=== PATIENT | female | born 1935 | race Caucasian/White ===

== ENCOUNTER 2024-09-22 16:47 | Inpatient (IN) | payer MEDICARE, BC, SELFPAY ==
[2024-09-22] VITALS (15 sets, daily range): BP systolic 132–187; BP diastolic 65–92; BMI 17.7
--- NOTE | 2024-09-22 07:31 | ED.GENMED ---
History of Present Illness
<Sarika Ablarran MD, Resident - Last Filed: 09/24/24 15:16>
General
Chief Complaint: Abdominal Pain
Source: patient and family
Time Seen by Provider: 09/22/24 07:30
History of Present Illness
History of Present Illness:
This is a 88 year old female patient with PMH of GERD, HLD, NIDDM, PAD, Hx of breast cancer and bladder cancer who presented to the ED with concerns for acid reflux, decreased apetite and diarrhea. She states that on Wednesday she started to have
symptoms of non bloody diarrhea that last until today when she have soft formed stools. She had epigastric abdominal pain that last for 2 days and then resolved. She then started to experience severe acid reflux along with retrosternal burning and
non bloody vomiting. She has been omprazole which provided no relief. She was unable to properly tolerate food for the past 12 hours because of her acid reflux. She denies any fevers, chills, constipation, palpitations or back pain. She has no
recent history of travel.
Past History
<Sarika Albarran MD, Resident - Last Filed: 09/24/24 15:16>
Past History
ED Past Medical History: COPD, GERD, Hypercholesterolemia, NIDDM and Other (PAD)
ED Past Surgical History: Appendectomy, Cholecystectomy and Other (Hx of mastectomy due to breast cancer, stents in lower extremities PAD)
Social History
Tobacco: Smoker (smokes a pack a day)
Alcohol: None
Living: alone
Employment: Not employed
Review of Systems
<Sarika Albarran MD, Resident - Last Filed: 09/24/24 15:16>
Review of Systems
Constitutional: Denies fever or chills
EENT: Reports sore throat
Respiratory: Reports trouble breathing
Cardiac: Denies chest pain or palpitations
ABD/GI: Reports nausea and vomiting; Denies abdominal pain or diarrhea
: Reports dysuria
Musculoskeletal: Denies back pain
Neurological: Denies headache
Phy Exam
<Sarika Albarran MD, Resident - Last Filed: 09/24/24 15:16>
General Physical Exam
General Presentation: well appearing and no apparent distress
Cardiovascular Exam
Cardiovascular Exam: regular rate/rhythm and no murmur
Heart Sounds: normal
Pulmonary Exam
Pulmonary Exam: lungs clear, no respiratory distress and no crackles
Gastrointestinal Exam
Gastrointestinal Exam: normal bowel sounds, non tender, soft and non distended
Neurological Exam
Neurological Exam: oriented x3
Musculoskeletal Exam
Musculoskeletal Exam: no edema
Skin Exam
Skin Exam: warm/dry
Psychiatric Exam
Psychiatric Exam: normal mood/affect
Course
<Sarika Albarran MD, Resident - Last Filed: 09/24/24 15:16>
Orders/Labs/Results
Orders:
Orders
09/22/24 07:37
EKG [Electrocardiogram (*1)] Urgent
Reason for Study: Abdominal Pain
EKG- Treatment ONCE
09/22/24 08:45
Mag Hydrox/Al Hydrox/Simeth [Maalox] 30 ml Phenobarb/Hyoscy/Atropine/Scop [] 10 ml Viscous Lidocaine 2% [Xylocaine Viscous Cup] 10 ml PO NOW
Ondansetron Injectable [Zofran] 4 mg IV NOW STA
Pantoprazole [Protonix IV] 40 mg IV NOW STA
CR Obstruct Series W/pa Chest Urgent
Comment:
Reason For Exam: acid reflux, nausea, difficulty swallowing
09/22/24 08:49
0.9% Sodium Chloride 500 ml [Nss] 500 ml IV BOLUS
09/22/24 09:09
Complete Blood Count/With Diff Urgent
09/22/24 09:11
Mag Hydrox/Al Hydrox/Simeth [Maalox] 30 ml .ROUTE .STK-MED ONE
Phenobarb/Hyoscy/Atropine/Scop [] 10 ml .ROUTE .STK-MED ONE
Viscous Lidocaine 2% [Xylocaine Viscous Cup] 15 ml .ROUTE .STK-MED ONE
09/22/24 09:18
Add On- LAB Urgent
Tests Added?: lipase and magnesium
09/22/24 10:28
Prochlorperazine [Compazine] 10 mg IV NOW STA
09/22/24 10:29
CT Abd/pel W Iv And Oral Contr Urgent
Comment:
Reason For Exam: abdominal pain, vomiting
Iohexol [Omnipaque] See Protocol PO NOW STA
09/22/24 12:50
Comprehensive Metabolic Panel Urgent
Lipase Urgent
Magnesium Urgent
09/22/24 15:49
Consult Surgery [SURGICAL CONSULT] Routine
Consulting Provider: Jad Teague
Was physician already notified: Yes
Reason for consult: SBO
09/22/24 16:00
0.9% Sodium Chloride 1000 ml [Nss] 1,000 ml IV 100 mls/hr
09/22/24 16:09
Admit/Transfer Patient As Directed
Co-Sign Provider:
Level of Care: Inpatient admission
Assign to:: Telemetry
Physician / Group: Donovan Hart
Diagnosis: Small Bowel Obstruction
Reason for Telemetry: Arrhythmia
Date to Stop Telemetry: 09/25/24
Time to Stop Telemetry: 11:00
Reason for Hospitalization: Small Bowel Obstruction
Expected length of stay greater than two midnights?: Yes
ELOS- Estimated Length of Stay in days: 2
I certify the patient meets the requirements for IP care: Yes
Ertapenem [Invanz] 1,000 mg 0.9% Sodium Chloride [Nss] 50 ml IV ONCE
PRN Pain Medication Management As Directed
May give lesser potent ordered pain med per pt: Yes
preference::
Protocol:: Medication orders for pain may be administered in a
manner that supports deferring to patient preference
when the pt is:
- Requesting an ordered lesser potent pain medication.
Least to most potent pain medications are defined
as: acetaminophen < NSAID < tramadol < opioids
(morphine, oxycodone, hydromorphone).
- Requesting a lesser dose of the same medication IF
ORDERED.
- Requesting a less intrusive route of administration
if both routes are prescribed by the provider (PO <
IV).
09/22/24 16:13
HYDROmorphone [Dilaudid] 0.25 mg IV PACU-Q5MPRN PRN
HYDROmorphone [Dilaudid] 0.25 mg IV PACU-Q5MPRN PRN
Meperidine [Demerol] 12.5 mg IV PACU-Q5MPRN PRN
Ondansetron Injectable [Zofran] 4 mg IV PACU-ONCEPRN PRN
Prochlorperazine [Compazine] 5 mg IV PACU-ONCEPRN PRN
Notify MD As Directed
Notify physician if: for SDS patients with known or suspected sleep obstructive sleep apnea, monitor in the
PACU.
Notify MD for any apneic/desaturation episodes
O2 Therapy [RESP] Urgent
Titrate/Wean O2 to maintain O2 sat greater than (%): 92
Special Instructions: -Provide supplemental oxygen to achieve O2 sat of 92% or greater.
-After 15 min, may wean O2 and discontinue if patient is able to maintain O2 sat of 92%
or greater during recovery period.
If patient is a discharge home, without oxygen therapy, notify anestheiologist if
unable to maintain O2 SAT of 92% or greater on room air for MD clearance.
09/22/24 16:14
Code Status As Directed
Resuscitation Status: Full Code
09/22/24 16:15
Normosol (Mult Electrolytes) [Normosol-R/Plasmalyte-A] 1,000 ml IV PER PROTOCOL
09/22/24 16:24
Dextrose 50%-Water [Dextrose 50% Syringe] 12.5 grams IV [id number] PRN
09/22/24 16:27
Dexamethasone Sod Phosphate [Decadron] 20 mg .ROUTE .STK-MED ONE
Fentanyl Citrate/Pf [Sublimaze] 100 mcg .ROUTE .STK-MED ONE
Lidocaine 2% Mpf [Xylocaine Mpf 2%] 100 mg .ROUTE .STK-MED ONE
Ondansetron Injectable [Zofran] 4 mg .ROUTE .STK-MED ONE
Propofol [Diprivan] 20 ml .ROUTE .STK-MED
Rocuronium [place] [Rocuronium] 50 mg .ROUTE .STK-MED ONE
09/22/24 16:29
Bupivacaine 0.25%Pf/Epinephrin [Sensorcaine-Epi 0.25%-0.0005] 60 ml .ROUTE .STK-MED ONE
09/22/24 18:00
Insulin Aspart Corrective Low [Novolog Flexpen-Low Resistance] See Protocol SC Q6
09/22/24 18:35
Lorazepam [Ativan] 0.25 mg IV DAILYPRN PRN
Morphine Sulfate 2 mg IV Q4HPRN PRN
Prochlorperazine [Compazine] 5 mg IV Q6HPRN PRN
09/22/24 18:35
Activity As Directed
Activity Level: With Assistance
Pneumatic Compression Sleeves As Directed
Type: Knee high
Precautions As Directed
Type of Precautions: Other
Comment: Fall precautions
Vital Signs As Directed
Frequency: Per unit guidelines
DX Deep Vein Thrombosis Video Routine
09/23/24 05:37
Basic Metabolic Panel IN AM
Complete Blood Count/No Diff IN AM
Magnesium IN AM
09/23/24 08:00
Aspirin Low Dose EC [Aspir Low (Enteric Coated)] 81 mg PO DAILY
Pantoprazole [Protonix IV] 40 mg IV DAILY
09/24/24 04:44
Basic Metabolic Panel IN AM
Complete Blood Count/No Diff IN AM
Magnesium IN AM
09/25/24 06:00
Basic Metabolic Panel IN AM
Complete Blood Count/No Diff IN AM
Magnesium IN AM
09/25/24 11:00
DC Protocol for Telemetry ONCE
09/26/24 06:00
Basic Metabolic Panel IN AM
Complete Blood Count/No Diff IN AM
Magnesium IN AM
09/27/24 06:00
Basic Metabolic Panel IN AM
Complete Blood Count/No Diff IN AM
Magnesium IN AM
09/28/24 06:00
Basic Metabolic Panel IN AM
Complete Blood Count/No Diff IN AM
Magnesium IN AM
09/29/24 06:00
Basic Metabolic Panel IN AM
Complete Blood Count/No Diff IN AM
Magnesium IN AM
Abnormal Lab Results
09/22/24 09/22/24
09:09 12:50
WBC 12.7 H 10^3/uL
(4.8-10.8)
RBC 5.46 H 10^6/uL
(4.20-5.40)
MCV 80.6 L fL
(81.0-99.0)
Abs Immat Gran (auto) 0.1 H 10^3/uL
(0-0.05)
Absolute Neuts (auto) 10.9 H 10^3/uL
(1.4-6.5)
Absolute Lymphs (auto) 0.8 L 10^3/uL
(1.2-3.4)
Absolute Monos (auto) 0.9 H 10^3/uL
(0.1-0.6)
Neutrophils % 85.8 H %
(42.2-75.2)
Lymphocytes % 6.4 L %
(20.5-51.1)
Sodium 125 L mmol/L
(135-145)
Chloride 89 L mmol/L
(98-107)
BUN 35 H mg/dl
(7-17)
Glucose 122 H mg/dl
(70-99)
Lipase 17 L U/L
(23-300)
09/22/24 09:09
09/22/24 12:50
Vital Signs
Initial and Last Documented VS:
Initial Vital Signs
Temp Pulse Resp BP Pulse Ox
97.4 F 97 16 152/85 96
09/22/24 07:27 09/22/24 07:27 09/22/24 07:27 09/22/24 07:27 09/22/24 07:27
Last Documented Vital Signs
Temp Pulse Resp BP Pulse Ox
98.2 F 82 16 166/83 96
09/24/24 11:29 09/24/24 11:29 09/24/24 11:29 09/24/24 11:29 09/24/24 11:29
<Jaylon Chery MD - Last Filed: 09/23/24 06:38>
Orders/Labs/Results
Orders:
Orders
09/22/24 07:37
EKG [Electrocardiogram (*1)] Urgent
Reason for Study: Abdominal Pain
EKG- Treatment ONCE
09/22/24 08:45
Mag Hydrox/Al Hydrox/Simeth [Maalox] 30 ml Phenobarb/Hyoscy/Atropine/Scop [] 10 ml Viscous Lidocaine 2% [Xylocaine Viscous Cup] 10 ml PO NOW
Ondansetron Injectable [Zofran] 4 mg IV NOW STA
Pantoprazole [Protonix IV] 40 mg IV NOW STA
CR Obstruct Series W/pa Chest Urgent
Comment:
Reason For Exam: acid reflux, nausea, difficulty swallowing
09/22/24 08:49
0.9% Sodium Chloride 500 ml [Nss] 500 ml IV BOLUS
09/22/24 09:09
Complete Blood Count/With Diff Urgent
09/22/24 09:11
Mag Hydrox/Al Hydrox/Simeth [Maalox] 30 ml .ROUTE .STK-MED ONE
Phenobarb/Hyoscy/Atropine/Scop [] 10 ml .ROUTE .STK-MED ONE
Viscous Lidocaine 2% [Xylocaine Viscous Cup] 15 ml .ROUTE .STK-MED ONE
09/22/24 09:18
Add On- LAB Urgent
Tests Added?: lipase and magnesium
09/22/24 10:28
Prochlorperazine [Compazine] 10 mg IV NOW STA
09/22/24 10:29
CT Abd/pel W Iv And Oral Contr Urgent
Comment:
Reason For Exam: abdominal pain, vomiting
Iohexol [Omnipaque] See Protocol PO NOW STA
09/22/24 12:50
Comprehensive Metabolic Panel Urgent
Lipase Urgent
Magnesium Urgent
09/22/24 15:49
Consult Surgery [SURGICAL CONSULT] Routine
Consulting Provider: Jad Teague
Was physician already notified: Yes
Reason for consult: SBO
09/22/24 16:00
0.9% Sodium Chloride 1000 ml [Nss] 1,000 ml IV 100 mls/hr
09/22/24 16:09
Admit/Transfer Patient As Directed
Co-Sign Provider:
Level of Care: Inpatient admission
Assign to:: Telemetry
Physician / Group: Donovan Hart
Diagnosis: Small Bowel Obstruction
Reason for Telemetry: Arrhythmia
Date to Stop Telemetry: 09/25/24
Time to Stop Telemetry: 11:00
Reason for Hospitalization: Small Bowel Obstruction
Expected length of stay greater than two midnights?: Yes
ELOS- Estimated Length of Stay in days: 2
I certify the patient meets the requirements for IP care: Yes
Ertapenem [Invanz] 1,000 mg 0.9% Sodium Chloride [Nss] 50 ml IV ONCE
PRN Pain Medication Management As Directed
May give lesser potent ordered pain med per pt: Yes
preference::
Protocol:: Medication orders for pain may be administered in a
manner that supports deferring to patient preference
when the pt is:
- Requesting an ordered lesser potent pain medication.
Least to most potent pain medications are defined
as: acetaminophen < NSAID < tramadol < opioids
(morphine, oxycodone, hydromorphone).
- Requesting a lesser dose of the same medication IF
ORDERED.
- Requesting a less intrusive route of administration
if both routes are prescribed by the provider (PO <
IV).
09/22/24 16:13
HYDROmorphone [Dilaudid] 0.25 mg IV PACU-Q5MPRN PRN
HYDROmorphone [Dilaudid] 0.25 mg IV PACU-Q5MPRN PRN
Meperidine [Demerol] 12.5 mg IV PACU-Q5MPRN PRN
Ondansetron Injectable [Zofran] 4 mg IV PACU-ONCEPRN PRN
Prochlorperazine [Compazine] 5 mg IV PACU-ONCEPRN PRN
Notify MD As Directed
Notify physician if: for SDS patients with known or suspected sleep obstructive sleep apnea, monitor in the
PACU.
Notify MD for any apneic/desaturation episodes
O2 Therapy [RESP] Urgent
Titrate/Wean O2 to maintain O2 sat greater than (%): 92
Special Instructions: -Provide supplemental oxygen to achieve O2 sat of 92% or greater.
-After 15 min, may wean O2 and discontinue if patient is able to maintain O2 sat of 92%
or greater during recovery period.
If patient is a discharge home, without oxygen therapy, notify anestheiologist if
unable to maintain O2 SAT of 92% or greater on room air for MD clearance.
09/22/24 16:14
Code Status As Directed
Resuscitation Status: Full Code
09/22/24 16:15
Normosol (Mult Electrolytes) [Normosol-R/Plasmalyte-A] 1,000 ml IV PER PROTOCOL
09/22/24 16:24
Dextrose 50%-Water [Dextrose 50% Syringe] 12.5 grams IV [id number] PRN
09/22/24 16:27
Dexamethasone Sod Phosphate [Decadron] 20 mg .ROUTE .STK-MED ONE
Fentanyl Citrate/Pf [Sublimaze] 100 mcg .ROUTE .STK-MED ONE
Lidocaine 2% Mpf [Xylocaine Mpf 2%] 100 mg .ROUTE .STK-MED ONE
Ondansetron Injectable [Zofran] 4 mg .ROUTE .STK-MED ONE
Propofol [Diprivan] 20 ml .ROUTE .STK-MED
Rocuronium [place] [Rocuronium] 50 mg .ROUTE .STK-MED ONE
09/22/24 16:29
Bupivacaine 0.25%Pf/Epinephrin [Sensorcaine-Epi 0.25%-0.0005] 60 ml .ROUTE .STK-MED ONE
09/22/24 18:00
Insulin Aspart Corrective Low [Novolog Flexpen-Low Resistance] See Protocol SC Q6
09/22/24 18:35
Lorazepam [Ativan] 0.25 mg IV DAILYPRN PRN
Morphine Sulfate 2 mg IV Q4HPRN PRN
Prochlorperazine [Compazine] 5 mg IV Q6HPRN PRN
09/22/24 18:35
Activity As Directed
Activity Level: With Assistance
Pneumatic Compression Sleeves As Directed
Type: Knee high
Precautions As Directed
Type of Precautions: Other
Comment: Fall precautions
Vital Signs As Directed
Frequency: Per unit guidelines
DX Deep Vein Thrombosis Video Routine
09/23/24 05:37
Basic Metabolic Panel IN AM
Complete Blood Count/No Diff IN AM
Magnesium IN AM
09/23/24 08:00
Aspirin Low Dose EC [Aspir Low (Enteric Coated)] 81 mg PO DAILY
Pantoprazole [Protonix IV] 40 mg IV DAILY
09/24/24 04:44
Basic Metabolic Panel IN AM
Complete Blood Count/No Diff IN AM
Magnesium IN AM
09/25/24 06:00
Basic Metabolic Panel IN AM
Complete Blood Count/No Diff IN AM
Magnesium IN AM
09/25/24 11:00
DC Protocol for Telemetry ONCE
09/26/24 06:00
Basic Metabolic Panel IN AM
Complete Blood Count/No Diff IN AM
Magnesium IN AM
09/27/24 06:00
Basic Metabolic Panel IN AM
Complete Blood Count/No Diff IN AM
Magnesium IN AM
09/28/24 06:00
Basic Metabolic Panel IN AM
Complete Blood Count/No Diff IN AM
Magnesium IN AM
09/29/24 06:00
Basic Metabolic Panel IN AM
Complete Blood Count/No Diff IN AM
Magnesium IN AM
Abnormal Lab Results
09/22/24 09/22/24
09:09 12:50
WBC 12.7 H 10^3/uL
(4.8-10.8)
RBC 5.46 H 10^6/uL
(4.20-5.40)
MCV 80.6 L fL
(81.0-99.0)
Abs Immat Gran (auto) 0.1 H 10^3/uL
(0-0.05)
Absolute Neuts (auto) 10.9 H 10^3/uL
(1.4-6.5)
Absolute Lymphs (auto) 0.8 L 10^3/uL
(1.2-3.4)
Absolute Monos (auto) 0.9 H 10^3/uL
(0.1-0.6)
Neutrophils % 85.8 H %
(42.2-75.2)
Lymphocytes % 6.4 L %
(20.5-51.1)
Sodium 125 L mmol/L
(135-145)
Chloride 89 L mmol/L
(98-107)
BUN 35 H mg/dl
(7-17)
Glucose 122 H mg/dl
(70-99)
Lipase 17 L U/L
(23-300)
09/22/24 09:09
09/22/24 12:50
Vital Signs
Initial and Last Documented VS:
Initial Vital Signs
Temp Pulse Resp BP Pulse Ox
97.4 F 97 16 152/85 96
09/22/24 07:27 09/22/24 07:27 09/22/24 07:27 09/22/24 07:27 09/22/24 07:27
Last Documented Vital Signs
Temp Pulse Resp BP Pulse Ox
98.2 F 82 16 166/83 96
09/24/24 11:29 09/24/24 11:29 09/24/24 11:29 09/24/24 11:29 09/24/24 11:29
<Sarika Merary Albarran MD, Resident - Last Filed: 09/24/24 15:16>
MDM/Problems Addressed
Differential Diagnosis Includes:
GERD, PUD, Viral Gastroenteritis, Hiatal Hernia
MDM/Problems Addressed:
Pt afebrile on exam. CBC/CMP/Abd obstruction series with CXR ordered. Elevated WBC. Chest/Abd xray without any acute cardiopulmonary process. Started on IVFs, PPI and zofran. Patient only experienced mild relief. CT abd with IV and oral contrast
showed distal small bowel obstruction with probable transition point in the central posterior pelvis related to adhesions. Order for NGT placement. Will admit patient and consult general surgery.
<Sarika Albarran MD, Resident - Last Filed: 09/24/24 15:16>
*Critical Care Note
Total Time (30-74mins, 75-104mins- exclusive of procedures): Not Applicable
ED Attending Note
<Sarika Albarran MD, Resident - Last Filed: 09/24/24 15:16>
-
Portions of this chart may have been created with voice recognition software.� Occasional wrong word or��sound alike� substitutions may have occurred due to the inherent limitations of voice recognition software.
<Jaylon Chery MD - Last Filed: 09/23/24 06:38>
ED Attending Note
Patient seen and examined by attending physician: Yes
ED Attending Note:
Patient presents to ED secondary to upper abdominal pain, along with 'reflux' sensation over the past 2 days, with decreased appetite. Patient has had multiple intermittent vomiting episodes. Of note, 5 days ago, patient reports nonbloody diarrhea
that lasted approximately 3 days with resolution. Denies fever or chills. Denies chest pain. Denies back pain. Denies recent travel. Denies recent change in medications or diet. 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 Abdominal
pain described as achy, nonradiating, without any alleviating or exacerbating factors.
Physical Exam
General: mild distress, not acutely ill. afebrile
Head: nc/at. eomi
Neck: supple. no meningeal signs.
Heart: s1/s2 regular rate and rhythm, no murmur. equal radial pulses.
Lungs: no acute respiratory distress. clear bilaterally
Abdomen: normal bowel sounds. mild epigastric/periumbilical tenderness to palpation.
Neuro: alert and oriented x 3. no focal neurological deficits
Skin: no rash
Psychiatric: well kept. interactive and cooperative
Extremities: no edema. no calf tenderness
X-ray report reviewed, concerning for ileus vs developing SBO. CT abd/pel ordered. Pt will require further evaluation and treatment, in light of hyponatremia and ongoing symptoms, persistent nausea
Surgery to be consulted, if CT indicates SBO
Discharge Plan
Departure
Patient Disposition: Admit
Date of Disposition: 09/22/24
Time of Disposition: 15:13
Presentation/result/management discussed w/ accepting MD/DO: Hospitalist
Discharge Problem:
Small bowel obstruction
Interventions
Interventions:
*Risk Screen - Suicide Last Done: 09/22/24 07:27
*General Assessment Last Done: 09/22/24 07:27
*Neglect/Abuse Screening Last Done: 09/22/24 07:27
ED- Fall Risk Assessment Last Done: 09/22/24 07:42
*ED COVID-19 Vaccine History Last Done: 09/22/24 07:27
*Nursing Disposition Last Done: 09/22/24 16:30
ST-Sandyf-Gddgrreqna Assessment Last Done: 09/22/24 07:42
Discharge Date and Time
Discharge Date/Time: 09/22/24 16:30
[2024-09-22] MEDS: NSS 500 IV (09:08)
[2024-09-22] MEDS: ZOFRAN 4 MG IV (09:12)
[2024-09-22] MEDS: PROTONIX IV 40 MG IV (09:12)
[2024-09-22] MEDS: MAALOX 50 PO (09:13)
[2024-09-22 09:15] LABS: % Basophils 0.2 % (0-2); % Immature Granulocytes 0.4 % (0-0.5); % Lymphocytes 6.4 % (20.5-51.1); % Monocytes 7.2 % (1.7-9.3); % Neutrophils 85.8 % (42.2-75.2); Absolute Immature Granulocytes 0.1 10^3/uL (0-0.05); Absolute Lymphocytes 0.8 10^3/uL (1.2-3.4); Absolute Monocytes 0.9 10^3/uL (0.1-0.6); Absolute Neutrophils 10.9 10^3/uL (1.4-6.5); Hemoglobin 15.4 g/dL (12.0-16.0); Mean Corpuscular Hgb 28.2 pg (27.0-31.0); Mean Corpuscular Volume 80.6 fL (81.0-99.0); Mean Platelet Volume 8.7 fL (7.4-10.4); Nucleated Red Blood Cells % 0 %; Platelet Count 270 10^3/uL (130-400); Red Blood Cell Count 5.46 10^6/uL (4.20-5.40); Red Cell Dist. Width 14.2 % (11.5-14.5); White Blood Cell Count 12.7 10^3/uL (4.8-10.8)
[2024-09-22] MEDS: COMPAZINE 10 MG IV (11:01)
[2024-09-22] MEDS: OMNIPAQUE 50 ML PO (11:07)
[2024-09-22 13:13] LABS: ALT (SGPT) 16 U/L (0-35); AST (SGOT) 27 U/L (14-36); Alkaline Phosphatase 106 U/L (38-126); Blood Urea Nitrogen 35 mg/dl (7-17); Calcium 8.8 mg/dl (8.4-10.2); Carbon Dioxide 28 mmol/L (22-30); Chloride 89 mmol/L (98-107); Estimated Creatinine Clearance 35 ml/min; Glucose 122 mg/dl (70-99); Lipase 17 U/L (23-300); Magnesium 1.6 mg/dl (1.6-2.3); Potassium 4.4 mmol/L (3.5-5.1); Sodium 125 mmol/L (135-145); Total Bilirubin 0.6 mg/dl (0.2-1.3); Total Protein 6.7 g/dl (6.3-8.2); eGFR > 60.00
--- NOTE | 2024-09-22 15:57 | HPS.HSE ---
Family Physician
-
Family Physician: Osmin Tineo
Chief Complaint
-
nausea/vomiting/reflux
History of Present Illness
88F GERD, HLD, NIDDM, PAD lower ext stents on ASA, Hx of breast bladder cancer p/w acid reflux/nausea/vomiting starting in morning, prompting ED eval. Prior to onset of symptoms patient had epigastric pain diarrhea for the past few days. Diarrhea
since resolved. Had a small bowel movement in the morning prior to onset nausea vomiting. ED eval would note SBO on imaging likely d/t adhesions. Labs noted hyponatremia likely due to vomiting and mild leukocytosis likely stress reactive. Vital
signs otherwise stable. Symptoms improved with antiemetics and ppi. Surgery evaluated and took patient to OR for laparoscopic surgical evaluation.
Medical History
Past Medical History
Past Medical History: Reports Other (as above)
Past Surgical History: Reports Appendectomy and Cholecystectomy
Social History
Tobacco: Smoker
Alcohol: None
Drug: None
Living: With Family
Family History
Family History: Not pertinent (reviewed)
Allergies / Home Medications
Allergies reflects when Allergies were last updated in [facility].
Home Medications with original date entered in [facility]
Allergy/Medication List:
Allergies
Allergy/AdvReac Type Severity Reaction Status Date / Time
codeine Allergy Unknown Verified 09/22/24 07:34
Home Medications
acetaminophen 500 mg tablet 500 mg PO PRN PRN pain 09/22/24
alprazolam 0.25 mg tablet 0.25 mg PO DAILYPRN PRN anxiety 09/22/24
aspirin 81 mg tablet,delayed release 81 mg PO DAILY Blood Clot Prevention/Tx 09/22/24
atorvastatin 10 mg tablet 10 mg PO DAILY High Cholesterol 09/22/24
budesonide 160 mcg-glycopyr 9 mcg-formot 4.8 mcg/actuation HFA inhaler (Breztri Aerosphere) 2 inh inhalation BID COPD 09/22/24
metformin 500 mg tablet 200 mg PO QPM Diabetes 09/22/24
pantoprazole 40 mg tablet,delayed release 40 mg PO DAILY Gastrointestinal Issue 09/22/24
Review of Systems
-
A 12 point ROS was completed and negative except as noted: Yes
Constitutional: Reports Other (as below)
Physical Exam
Vital Signs
Vital Signs
Temp Pulse Resp BP Pulse Ox
97.4 F 93 16 172/86 95
09/22/24 07:27 09/22/24 14:00 09/22/24 14:00 09/22/24 12:24 09/22/24 14:00
Physical Exam
General: Other (as below)
Laboratory Results
-
09/22/24 09:09
09/22/24 12:50
Laboratory Results
Total Bilirubin 0.6 mg/dl (0.2-1.3) 09/22/24 12:50
AST 27 U/L (14-36) 09/22/24 12:50
ALT 16 U/L (0-35) 09/22/24 12:50
Alkaline Phosphatase 106 U/L (38-126) 09/22/24 12:50
Lipase 17 U/L (23-300) L 09/22/24 12:50
Impression/Plan
-
ROS
General: Denies fever chills night sweats unexpected weight loss
Neuro: Denies seizure shaking loss of consciousness dizziness vertigo
Psych: denies depression hallucinations confusion manic episodes
Endocrine: Denies polyuria polydipsia polyphagia heat/cold intolerance
HEENT: Denies blindness visual disturbances epistaxis
Pulmonary: denies coughing hemoptysis sneezing sob dyspnea on exertion
Cardiovascular: denies chest pain palpitations leg swelling
Hematology: denies signs symptoms of anemia easy bruising/bleeding
Gastrointestinal: reports nausea vomiting reflux
Genito-Urinary: denies retention incontinence dysuria
Musculoskeletal: denies joint pain weakness
Dermatology: denies rash laceration bruising
Physical Exam
General: No pallor, cyanosis, or jaundice. appears cachectic
HEENT: Throat clear. PERRLA Normocephalic atraumatic
NECK: Supple. No JVD Carotid Bruits
RESPIRATORY: Lungs clear to auscultation. No crackles wheezes stridor
CVS: S1, S2 normal. RRR. No murmur, rub or gallop.
ABDOMEN: Soft, non-tender. No distension. BS+/normal.
EXTREMITIES: No peripheral cyanosis or edema.
INTEGRITY DIRECTOR: AOx3. No focal deficits.
IMPRESSION:
88F GERD, HLD, NIDDM, PAD lower ext stents on ASA, Hx of breast bladder cancer, current smoker, p/w acid reflux/nausea/vomiting starting in morning, prompting ED eval. Prior to onset of symptoms patient had epigastric pain diarrhea for the past few
days. Diarrhea since resolved. Had a small bowel movement in the morning prior to onset nausea vomiting. ED eval would note SBO on imaging likely d/t adhesions. Labs noted hyponatremia likely due to vomiting and mild leukocytosis likely stress
reactive. Vital signs otherwise stable. Symptoms improved with antiemetics and ppi. Surgery evaluated and took patient to OR for laparoscopic surgical evaluation.
PLAN:
#SBO
#Hyponatremia likely d/t nausea vomiting
Tele Admit
NPO as per surgery
Surgery eval appreciated taken to OR for laparoscopic surgical exploration
IVF support, monitor Na
compazine prn nausea
#GERD
IV PPI
#HLD
home statin on hold, SBO
#NIDDM
hold metformin
low dose sliding scale Q6
follow up A1c
#PAD LE stents
cont home ASA
COPD
stable respiratory status on room air
cont home inhaler or substitute as per pharmacy
#Active Smoker
smoking cessation counseled
Pt declined Nicotine Supplementation
dvt ppx SCD
gi ppx PPI
Full Code
I spent a total of 76 minutes with the patient or on the floor. More than 50% of this time involved counseling and coordination of care.
--- NOTE | 2024-09-22 16:04 | CON.GS ---
Addendum entered and electronically signed by Jad Teague MD 09/22/24 16:52:
Patient seen and examined with surgical TATTOO DESIGNER. Agree with documented consultation note consistent with my concurrent examination and evaluation.
Patient's family at bedside.
HPI: 88-year-old female presenting with 5-day history of GI symptoms. Started with mild abdominal vague discomfort and passage of small amount of stools and subsequent diarrhea. She has had a history of intermittent chronic diarrhea for some time.
She then began noting abdominal distention, belching and reflux of green bile with continued or worsening discomfort but she denies significant pain. No similar episodes like this in the past.
PMH: Peripheral arterial disease, hypercholesterolemia, diabetes mellitus, COPD and active smoker, skin, bladder and breast cancer history
PSH: Open appendectomy many years ago, lap samaria, TURBT x 2, lower extremity stenting, ERCPs
NAD AAOx3
ABD: Softly distended with tympany. Mild tenderness on palpation but no rebound rigidity or guarding. Right lower quadrant surgical scar. Laparoscopic surgical scars.
CT abdomen/pelvis with contrast: Distended stomach, multiple distended small bowel loops with abrupt transition point in the pelvis adjacent to the sigmoid colon posteriorly. Possible small closed-loop component. Distal small bowel completely
decompressed.
Assessment/plan: 88-year-old female presenting with probable high-grade or complete small bowel obstruction. Possible closed-loop component based on radiographic imaging.
Clinically stable. No signs of peritonitis but given abrupt transition point and CT imaging I discussed with the patient and her family members indications for more urgent operative intervention versus attempted nonoperative management. After
discussions of risks and benefits of both approaches patient and her family are in agreement with proceeding with surgery.
Diagnostic laparoscopy, laparoscopic lysis of adhesions, possible open, possible bowel resection was reviewed in detail including the potential operative findings and the management, alternative treatment options, benefits and potential risks. Any
of the patient's or her family members concerns or questions were fully addressed and written informed consent was obtained.
OR available and sending for patient now
Invanz on-call
SCDs for VTE prophylaxis
Appreciate hospitalist assistance with admission.
Original Note:
Medical History
-
Chief Complaint: nausea
History of Present Illness:
Ms Torrez is an 88 yo female with a h/o COPD, NIDDM, 1ppd smoker, bladder and breast ca tx remotely, open appendectomy and lap samaria who presents through the ED with nausea and abdominal discomfort. She noted a few days of diarrhea early this week
about 5 days ago followed by abdominal discomfort and passage of only a small amount of small formed stools since that time. She notes that over the last 12-24 hours, she began belching and having reflux of bile with the development of abdominal
discomfort. On exam, she is distended with mild tenderness throughout.
Past Medical History
Past Medical History: Cancer (skin, bladder and breast), COPD, Hypercholesterolemia and NIDDM
Past Surgical History: Appendectomy (open), Cholecystectomy (lap), Urological (TURBT x2) and Other (BLLE with vascular stenting, ERCP around the time of her samaria for ductal stone, reports normal colonoscopy about 3 years ago at [facility])
Social History
Tobacco: Smoker (1ppd)
Alcohol: None
Family History
Family History: Reviewed & Not Pertinent
Allergies / Home Medications
Allergy/AdvReac Type Severity Reaction Status Date / Time
codeine Allergy Unknown Verified 09/22/24 07:34
�Medication �Instructions �Recorded �Confirmed �Type
acetaminophen 500 mg tablet 500 mg PO PRN PRN pain 09/22/24 09/22/24 History
alprazolam 0.25 mg tablet 0.25 mg PO DAILYPRN PRN anxiety 09/22/24 09/22/24 History
aspirin 81 mg tablet,delayed 81 mg PO DAILY Blood Clot 09/22/24 09/22/24 History
release Prevention/Tx
atorvastatin 10 mg tablet 10 mg PO DAILY High Cholesterol 09/22/24 09/22/24 History
budesonide 160 mcg-glycopyr 9 2 inh inhalation BID COPD 09/22/24 09/22/24 History
mcg-formot 4.8 mcg/actuation HFA
inhaler (Breztri Aerosphere)
clopidogrel 75 mg tablet 75 mg PO DAILY Blood Clot 09/22/24 09/22/24 History
Prevention/Tx
metformin 500 mg tablet 200 mg PO QPM Diabetes 09/22/24 09/22/24 History
pantoprazole 40 mg tablet,delayed 40 mg PO DAILY Gastrointestinal 09/22/24 09/22/24 History
release Issue
Review of Systems
-
History Source: Patient and Family
All other systems: Negative unless noted
A 10 point review of systems was completed, and was negative except as per HPI.
Physical Exam
Vital Signs
Temp Pulse Resp BP Pulse Ox
97.4 F 93 16 172/86 95
09/22/24 07:27 09/22/24 14:00 09/22/24 14:00 09/22/24 12:24 09/22/24 14:00
09/21/24 09/22/24 09/23/24
06:59 06:59 06:59
Actual Weight 51.2 kg
Body Mass Index (BMI) 17.7
Lab Results
09/22/24 09:09
09/22/24 12:50
WBC 12.7 10^3/uL (4.8-10.8) H 09/22/24 09:09
Hgb 15.4 g/dL (12.0-16.0) 09/22/24 09:09
Hct 44.0 % (37.0-47.0) 09/22/24 09:09
Plt Count 270 10^3/uL (130-400) 09/22/24 09:09
Abs Immat Gran (auto) 0.1 10^3/uL (0-0.05) H 09/22/24 09:09
Neutrophils % 85.8 % (42.2-75.2) H 09/22/24 09:09
Physical Exam
General: No Apparent Distress and Other (Thin)
HEENT: Normocephalic and Other (missing teeth); Negative Moist Mucous Membranes
Respiratory: Non Labored Respirations
GI: Soft, Tender (mild and generalized) and Distended
Skin: Warm, Dry and Other (scattered ecchymosis)
Neuro: Awake, Alert and AO x 3
Psych: Calm
Data Reviewed
-
CT Scan: Image Personally Visualized and interpreted, Report Reviewed by me, Discussed with Physician, Discussed with Patient and Discussed with Family
Labs: Labs Reviewed by me, Discussed with Physician, Discussed with Nurse, Discussed with Patient and Discussed with Family
Old Records: Reviewed
Assessment / Plan
-
88 yo female with a h/o COPD, NIDDM, PAD s/p BLLE stents, 1ppd smoker, bladder and breast ca tx remotely, open appendectomy and lap samaria who presents through the ED with nausea and abdominal discomfort with belching and reflux of bilious contents.
CT imaging reviewed with high grade small bowel obstruction likely due to a single band adhesion from prior surgery. Significant bowel distention noted. Afebrile. Mild tachycardia and hypertension but vitals stable. Mild leukocytosis present.
Hyponatremia noted as well. Reviewed options including watchful waiting with bowel decompression/rest vs early surgical intervention. Patient and family wishing to pursue surgery at this time.
Will plan diagnostic laparoscopy for FAITH, possible conversion to open procedure if ischemic bowel present
Plan:
Admit to medicine service
Keep NPO, will place NGT in OR
Invanz x1 dose wildlife policy professional to OR
--- NOTE | 2024-09-22 16:48 | W.SUR.PREOP ---
Pre-Operative Surgical Note
-
I have examined this patient prior to the performance of the scheduled procedure.
The patient's condition is unchanged from the time of the current History and
Physical and the patient is able to undergo the scheduled procedure.
[2024-09-22 18:26] LABS: Glucose - Point of Care 126 mg/dl (70-99)
--- NOTE | 2024-09-22 18:26 | W.IMMPOSTOP ---
Addendum entered and electronically signed by Jad Teague MD 10/02/24 15:12:
#[id number]
Original Note:
Surgical Immed Post Op Note
-
Primary Surgeon: Zahida
Assisting Surgeon: Renetta Navarro; INSULATOR CUTTER AND FORMER, EXECUTIVE ASST-s
Pre-op Diagnosis: SBO
Post-op Diagnosis: SBO
Procedure Performed: Lap FAITH
Anesthesia Type: GETA + 0.25% Marcaine
Specimen / Cultures: none
Estimated Blood Loss: 12mL
Complications: none immediate
Operative Findings: Pelvic band adhesion from sigmoid colon epiploic appendages around mid ileum with resultant high grade SBO. laparoscopic lysis to release SBO. numerous additional pelvic and RLQ SB adhesions also lysed through to TI. No
proximal SB adhesions.
grand-daughter updated post op via phone call
--- NOTE | 2024-09-22 19:20 | PTCARENOTE ---
Pt. arriving to 2S from PACU, drowsy but arousable to verbal stimuli, c/o 6/10 abd pain. Vital signs stable, breathing even and unlabored on room air, gale draining clear yellow urine, surgical sites well approximated with surgical glue. Pt.
oriented to room and unit policies, bed locked and in lowest position, side rails in place, call light within reach, family at bedside.
[2024-09-22] MEDS: NSS 1000 IV (19:58)
[2024-09-22] MEDS: OFIRMEV 100 IV (19:58)
[2024-09-22] MEDS: ANESTHETIC LOZENGE 1 LOZENGE PO (21:45)
[2024-09-22 23:45] LABS: Glucose - Point of Care 162 mg/dl (70-99)
[2024-09-23] MEDS: SYMBICORT 160/4.5 MCG INHALER INH (00:10)
[2024-09-23 03:15] VITALS: BP 146/68
[2024-09-23] MEDS: OFIRMEV 100 IV ×2 (06:02→16:30)
[2024-09-23] MEDS: ANESTHETIC LOZENGE 1 LOZENGE PO (06:07)
[2024-09-23] MEDS: NSS 1000 IV ×2 (06:15→16:32)
[2024-09-23 06:18] LABS: Glucose - Point of Care 130 mg/dl (70-99)
[2024-09-23 06:20] LABS: Blood Urea Nitrogen 25 mg/dl (7-17); Calcium 8.2 mg/dl (8.4-10.2); Carbon Dioxide 20 mmol/L (22-30); Chloride 98 mmol/L (98-107); Estimated Creatinine Clearance 45 ml/min; Glucose 119 mg/dl (70-99); Magnesium 1.8 mg/dl (1.6-2.3); Potassium 4.2 mmol/L (3.5-5.1); Sodium 127 mmol/L (135-145); eGFR > 60.00
--- NOTE | 2024-09-23 07:13 | W.PN.HOSP.TC ---
Today's Communication/Plan
-
NPO as per surgery
pain control
IVF support
glycemic control
Assessment / Plan
Assessment / Plan
Physical Exam
General: No pallor, cyanosis, or jaundice. appears cachectic
HEENT: Throat clear. PERRLA Normocephalic atraumatic
NECK: Supple. No JVD Carotid Bruits
RESPIRATORY: Lungs clear to auscultation. No crackles wheezes stridor
CVS: S1, S2 normal. RRR. No murmur, rub or gallop.
ABDOMEN: Soft, non-tender. No distension. BS+/normal.
EXTREMITIES: No peripheral cyanosis or edema.
COMMISSIONING SPECIALIST: AOx3. No focal deficits.
IMPRESSION:
88F GERD, HLD, NIDDM, PAD lower ext stents on ASA, Hx of breast bladder cancer, current smoker, p/w acid reflux/nausea/vomiting starting in morning, prompting ED eval. Prior to onset of symptoms patient had epigastric pain diarrhea for the past few
days. Diarrhea since resolved. Had a small bowel movement in the morning prior to onset nausea vomiting. ED eval would note SBO on imaging likely d/t adhesions. Labs noted hyponatremia likely due to vomiting and mild leukocytosis likely stress
reactive. Vital signs otherwise stable. Symptoms improved with antiemetics and ppi. Surgery evaluated and took patient to OR for laparoscopic surgical evaluation.
PLAN:
#SBO
#Hyponatremia likely d/t nausea vomiting
Tele Admit
NPO as per surgery
Surgery eval appreciated taken to OR for laparoscopic lysis of adhesions to release SBO
IVF support, monitor Na
compazine prn nausea
pain control prn IV Tylenol Toradol
#GERD
IV PPI
#HLD
home statin on hold
#NIDDM
hold metformin while NPO
low dose sliding scale Q6
follow up A1c
#PAD LE stents
cont home ASA
COPD
stable respiratory status on room air
cont home inhaler or substitute as per pharmacy
#Active Smoker
smoking cessation counseled
Pt declined Nicotine Supplementation
dvt ppx SCD
gi ppx PPI
Full Code
Discussed with patient and patient's daughter also named Janice
I spent a total of 50 minutes with the patient or on the floor. More than 50% of this time involved counseling and coordination of care.
Anticipated Discharge: 24 - 48 hours
Subjective/Interval History
-
Date of Service: September 23, 2024
Objective Data
-
Labs:
Laboratory Results
09/23/24
05:37
WBC Pending
Hgb Pending
Hct Pending
Plt Count Pending
Sodium 127 L
Potassium 4.2
Chloride 98
Carbon Dioxide 20 L
BUN 25 H
Creatinine 0.7
Glucose 119 H
Calcium 8.2 L
Vital Signs:
Vital Signs
Temp Pulse Resp BP Pulse Ox
97.6 F 89 16 146/68 94
09/23/24 03:15 09/23/24 03:15 09/23/24 03:15 09/23/24 03:15 09/23/24 03:15
I&O
09/22/24 09/23/24 09/24/24
06:59 06:59 06:59
Intake Total 1300 / 1300
Output Total 1250 / 1250
Balance 50 / 50
[2024-09-23] MEDS: SYMBICORT 160/4.5 MCG INHALER 2 PUFF INH ×2 (07:19→20:29)
[2024-09-23] MEDS: SPIRIVA RESPIMAT 2.5 MCG 2 PUFF INH (07:19)
[2024-09-23 07:33] LABS: Hematocrit 36.8 % (37.0-47.0); Hemoglobin 12.2 g/dL (12.0-16.0); Mean Corp Hgb Conc. 33.2 g/dL (33.0-37.0); Mean Corpuscular Hgb 28.3 pg (27.0-31.0); Mean Corpuscular Volume 85.4 fL (81.0-99.0); Mean Platelet Volume 9.3 fL (7.4-10.4); Platelet Count 197 10^3/uL (130-400); Red Blood Cell Count 4.31 10^6/uL (4.20-5.40); Red Cell Dist. Width 14.4 % (11.5-14.5); White Blood Cell Count 7.1 10^3/uL (4.8-10.8)
[2024-09-23 07:59] VITALS: BP 148/66
[2024-09-23] MEDS: PROTONIX IV 40 MG IV (09:50)
[2024-09-23] MEDS: ASPIR LOW (ENTERIC COATED) 81 MG PO (09:51)
[2024-09-23] MEDS: NSS (PRESERVATIVE FREE) 10 ML IV (09:51)
[2024-09-23] MEDS: TORADOL 15 MG IV ×2 (11:05→20:12)
[2024-09-23 11:41] VITALS: BP 162/72
[2024-09-23 11:51] LABS: Glucose - Point of Care 91 mg/dl (70-99)
[2024-09-23 13:09] LABS: Hematocrit 38.3 % (37.0-47.0); Hemoglobin 13.3 g/dL (12.0-16.0)
--- NOTE | 2024-09-23 13:47 | W.PN.GS2 ---
Addendum entered and electronically signed by Mirza Kate MD 09/24/24 00:04:
I saw and examined the patient the morning of 09/23/24.
The FIRST COAT SANDER's note was reviewed and I agree with the note.
-Ok for d/c gale
Original Note:
Today's Communication / Plan
-
sips of clears
Assessment / Plan
-
88 yo female presenting with SBO secondary to adhesions now POD #1 lap FAITH
AFVSS
Await return of bowel function
--Keep NPO with sips of clears
--Analgesics/Antiemetics as needed
--Follow labs on IVF
--Medical management as per primary team
--Encouraged OOB/Ambulation
--SCD's and lovenox for VTE ppx
Subjective Data
-
Date of Service: September 23, 2024
Patient seen and examined at bedside with Dr. Kate. Denies n/v. Not yet passing flatus or stools. Minimal post op discomfort.
Objective Data
-
Intake and Output
09/22/24 09/23/24 09/24/24
06:59 06:59 06:59
Intake Total 1300 / 1300 600 / 600
Output Total 1250 / 1250
Balance 50 / 50 600 / 600
Intake:
IV fluids (Total) 1300 / 1300 600 / 600
normosol 100 / 100
Output:
Urine, Gale 1250 / 1250
Vital Signs
Temp Pulse Resp BP Pulse Ox
97.7 F 79 18 162/72 97
09/23/24 11:41 09/23/24 11:41 09/23/24 11:41 09/23/24 11:41 09/23/24 11:41
Lab Results
09/23/24 13:01
09/23/24 05:37
Calcium 8.2 mg/dl (8.4-10.2) L 09/23/24 05:37
Magnesium 1.8 mg/dl (1.6-2.3) 09/23/24 05:37
Total Bilirubin 0.6 mg/dl (0.2-1.3) 09/22/24 12:50
AST 27 U/L (14-36) 09/22/24 12:50
ALT 16 U/L (0-35) 09/22/24 12:50
Alkaline Phosphatase 106 U/L (38-126) 09/22/24 12:50
Total Protein 6.7 g/dl (6.3-8.2) 09/22/24 12:50
Albumin 4.0 g/dl (3.5-5.0) 09/22/24 12:50
Physical Exam
-
NAD
ABD softly protuberant, mild distention, minimal incisional tenderness
Lap incisions well approximated with intact glue
[2024-09-23 16:19] VITALS: BP 139/60
[2024-09-23] MEDS: LOVENOX 30 MG SC (16:42)
[2024-09-23 16:43] LABS: Glucose - Point of Care 80 mg/dl (70-99)
[2024-09-23 17:38] VITALS: BMI 17.7
[2024-09-23 19:25] VITALS: BP 120/74
[2024-09-23 23:25] VITALS: BP 123/55
[2024-09-23 23:25] LABS: Glucose - Point of Care 74 mg/dl (70-99)
[2024-09-24] VITALS (7 sets, daily range): BP systolic 104–167; BP diastolic 51–83; PULSE 78; BMI 17.9
[2024-09-24 00:25] LABS: Glucose - Point of Care 109 mg/dl (70-99)
--- NOTE | 2024-09-24 04:17 | PTCARENOTE ---
Pt. voiding without difficulty post Hamlin removal this shift, bladder scanned for 24 ml post void (unmeasurable, missed the hat). Complained of some generalized abdominal pain at beginning of shift, Toradol given with adequate relief obtained.
Bowel sounds present but hypoactive. No complaints of nausea. Pt. sleeping.
[2024-09-24] MEDS: NSS 1000 IV ×3 (04:45→17:27)
[2024-09-24 05:12] LABS: Hemoglobin 10.9 g/dL (12.0-16.0); Mean Corpuscular Hgb 28.3 pg (27.0-31.0); Mean Corpuscular Volume 85.7 fL (81.0-99.0); Mean Platelet Volume 9.7 fL (7.4-10.4); Platelet Count 176 10^3/uL (130-400); Red Blood Cell Count 3.85 10^6/uL (4.20-5.40); Red Cell Dist. Width 14.6 % (11.5-14.5); White Blood Cell Count 4.9 10^3/uL (4.8-10.8)
[2024-09-24 05:35] LABS: Blood Urea Nitrogen 22 mg/dl (7-17); Calcium 8.1 mg/dl (8.4-10.2); Carbon Dioxide 22 mmol/L (22-30); Chloride 99 mmol/L (98-107); Estimated Creatinine Clearance 45 ml/min; Glucose 101 mg/dl (70-99); Magnesium 1.9 mg/dl (1.6-2.3); Phosphorus 2.1 mg/dl (2.5-4.5); Potassium 3.3 mmol/L (3.5-5.1); Sodium 128 mmol/L (135-145); eGFR > 60.00
[2024-09-24 06:31] LABS: Glucose - Point of Care 90 mg/dl (70-99)
--- NOTE | 2024-09-24 07:15 | W.PN.HOSP.TC ---
Today's Communication/Plan
-
clear liquid diet as per surgery
pain control, antiemetic prn
cont IVF NS
monitor Na, consider fluid restriction if Hyponatremia does not improve
PT/OT
Assessment / Plan
Assessment / Plan
Physical Exam
General: No pallor, cyanosis, or jaundice. appears cachectic
HEENT: Throat clear. PERRLA Normocephalic atraumatic
NECK: Supple. No JVD Carotid Bruits
RESPIRATORY: Lungs clear to auscultation. No crackles wheezes stridor
CVS: S1, S2 normal. RRR. No murmur, rub or gallop.
ABDOMEN: Soft, non-tender. No distension. BS+/normal.
EXTREMITIES: No peripheral cyanosis or edema.
SAWMILL HAND: AOx3. No focal deficits.
IMPRESSION:
88F GERD, HLD, NIDDM, PAD lower ext stents on ASA, Hx of breast bladder cancer, current smoker, p/w acid reflux/nausea/vomiting starting in morning, prompting ED eval. Prior to onset of symptoms patient had epigastric pain diarrhea for the past few
days. Diarrhea since resolved. Had a small bowel movement in the morning prior to onset nausea vomiting. ED eval would note SBO on imaging likely d/t adhesions. Labs noted hyponatremia likely due to vomiting and mild leukocytosis likely stress
reactive. Vital signs otherwise stable. Symptoms improved with antiemetics and ppi. Surgery evaluated and took patient to OR for laparoscopic surgical evaluation.
PLAN:
#SBO
#Hyponatremia likely d/t nausea vomiting
Tele Admit
clear liquid diet as per surgery
Surgery eval appreciated taken to OR for laparoscopic lysis of adhesions to release SBO
IVF support, monitor Na, consider fluid restriction as diet is advanced, if hyponatremia persists, slowly resolving
compazine prn nausea
pain control prn IV Tylenol Toradol
#GERD
IV PPI
#HLD
home statin on hold
#NIDDM
hold metformin while NPO
low dose sliding scale Q6
follow up A1c
#PAD LE stents
cont home ASA
COPD
stable respiratory status on room air
cont home inhaler or substitute as per pharmacy
#Active Smoker
smoking cessation counseled
Pt declined Nicotine Supplementation
#Hypokalemia
#Hypophosphatemia
Monitor and replete as necessary
PT/OT appreciated Home Health
dvt ppx SCD Lovenox
gi ppx PPI
Full Code
Discussed with patient and patient's daughter also named Janice
I spent a total of 45 minutes with the patient or on the floor. More than 50% of this time involved counseling and coordination of care.
Anticipated Discharge: 24 - 48 hours
Subjective/Interval History
-
Date of Service: September 24, 2024
Tolerating clear liquid diet. Reports improvement in pain. denies bowel movements but reports flatus. Overall reports feeling well.
Objective Data
-
Labs:
Laboratory Results
09/24/24
04:44
WBC 4.9
Hgb 10.9 L
Hct 33.0 L
Plt Count 176
Sodium 128 L
Potassium 3.3 L
Chloride 99
Carbon Dioxide 22
BUN 22 H
Creatinine 0.7
Glucose 101 H
Calcium 8.1 L
Vital Signs:
Vital Signs
Temp Pulse Resp BP Pulse Ox
97.3 F 73 16 130/61 96
09/24/24 03:15 09/24/24 03:15 09/24/24 03:15 09/24/24 03:15 09/24/24 03:15
I&O
09/23/24 09/24/24 09/25/24
06:59 06:59 06:59
Intake Total 1300 / 1300 2040 / 2040
Output Total 1250 / 1250 537 / 537
Balance 50 / 50 1503 / 1503
[2024-09-24] MEDS: SYMBICORT 160/4.5 MCG INHALER 2 PUFF INH ×2 (07:33→20:21)
[2024-09-24] MEDS: SPIRIVA RESPIMAT 2.5 MCG 2 PUFF INH (07:33)
[2024-09-24 08:00] LABS: Glycohemoglobin (HgbA1c) 6.9 % (4.0-5.6)
[2024-09-24] MEDS: POTASSIUM PHOSPHATE 259.0909 MEQ IV (08:02)
[2024-09-24] MEDS: ASPIR LOW (ENTERIC COATED) 81 MG PO (08:04)
[2024-09-24] MEDS: PROTONIX IV 40 MG IV (08:05)
[2024-09-24] MEDS: NSS (PRESERVATIVE FREE) 10 ML IV (08:06)
--- NOTE | 2024-09-24 10:19 | W.PN.GS2 ---
Addendum entered and electronically signed by Mirza Kate MD 09/24/24 19:00:
I saw and examined the patient.
The EVP HEAD OF [employer]'s note was reviewed and I agree with the note.
�Advance to clears
Original Note:
Today's Communication / Plan
-
Trial of clears
Assessment / Plan
-
88 yo female presenting with SBO secondary to adhesions now POD #2 lap FAITH
AFVSS
Following expected post op course
Passing some flatus now, no n/v
Hypokalemia/hypophosphatemia secondary to GI losses: replaced
--Trial of clears
--Analgesics/Antiemetics as needed
--Follow labs on IVF
--Medical management as per primary team
--Encouraged OOB/Ambulation
--SCD's and lovenox for VTE ppx
Subjective Data
-
Date of Service: September 24, 2024
Patient seen and examined at bedside. OOB to chair. Denies n/v. Passing a little flatus now. Voiding without difficulty. Some incisional discomfort with movement.
Objective Data
-
Intake and Output
09/23/24 09/24/24 09/25/24
06:59 06:59 06:59
Intake Total 1300 / 1300 2039 / 2039
Output Total 1250 / 1250 537 / 537
Balance 50 / 50 1503 / 1503
Intake:
Oral fluids 240 / 240
IV fluids (Total) 1300 / 1300 1800 / 1800
normosol 100 / 100
Output:
Urine, [place]lin 1250 / 1250 25 / 25
Urine, Voided 512 / 512
Other:
Number of approximated MODERATE 2
amounts of urine
Vital Signs
Temp Pulse Resp BP Pulse Ox
97.8 F 73 16 104/51 95
09/24/24 08:03 09/24/24 08:03 09/24/24 08:03 09/24/24 08:03 09/24/24 08:03
Lab Results
09/24/24 04:44
Calcium 8.1 mg/dl (8.4-10.2) L 09/24/24 04:44
Phosphorus 2.1 mg/dl (2.5-4.5) L 09/24/24 04:44
Magnesium 1.9 mg/dl (1.6-2.3) 09/24/24 04:44
Total Bilirubin 0.6 mg/dl (0.2-1.3) 09/22/24 12:50
AST 27 U/L (14-36) 09/22/24 12:50
ALT 16 U/L (0-35) 09/22/24 12:50
Alkaline Phosphatase 106 U/L (38-126) 09/22/24 12:50
Total Protein 6.7 g/dl (6.3-8.2) 09/22/24 12:50
Albumin 4.0 g/dl (3.5-5.0) 09/22/24 12:50
Physical Exam
-
NAD
ABD softly protuberant, mild distention, minimal incisional tenderness
Lap incisions well approximated with intact glue, some ecchymosis to umbilical incision
[2024-09-24 11:57] LABS: Glucose - Point of Care 94 mg/dl (70-99)
[2024-09-24 12:03] LABS: Hematocrit 37.1 % (37.0-47.0); Hemoglobin 12.2 g/dL (12.0-16.0)
[2024-09-24] MEDS: TORADOL 15 MG IV (12:47)
--- NOTE | 2024-09-24 12:47 | CM ---
CM met with pt bedside- [place]
Pt resides alone in a 2 story condo with 2+2+2+2 OSWALDO
Full flight to 2nd floor
Pt is typically very indep at baseline
Utilizes a SPC for steps outside and a WW in the community, no AD in the home
Pt babysits her great-granddtr 2x weekly
PCP- Osmin Hendricks
Rx- Gillian Robb
VN recs by therapy
Pt notes she prefers VN agency associated with [facility] as her doctors are associated there
Referral made via [facility] and pending
Discharge Disposition- home with [facility]
--- NOTE | 2024-09-24 12:52 | CM ---
CM met with pt bedside- [facility]
Pt resides alone in a 2 story condo with 2+2+2+2 OSWALDO
Full flight to 2nd floor
Pt is typically very indep at baseline
Utilizes a SPC for steps outside and a WW in the community, no AD in the home
Pt babysits her great-granddtr 2x weekly
PCP- Osmin Hendricks
Rx- Gillian Robb
VN recs by therapy
Pt notes she prefers VN agency associated with [facility] as her doctors are associated there
Pt currently not in [facility]- unable to add on weekend
Will need referral to VN agency during next business day
Discharge Disposition- home with [facility]
[2024-09-24] MEDS: LOVENOX 30 MG SC (17:23)
[2024-09-25 03:25] VITALS: BP 119/53
[2024-09-25] MEDS: NSS 1000 IV ×2 (03:54→17:59)
--- NOTE | 2024-09-25 07:14 | W.PN.HOSP.TC ---
Today's Communication/Plan
-
Doing well, diet advanced to full liquids diet, continue to monitor bowel function
Continue Lovenox and SCDs for DVT prophylaxis
Assessment / Plan
Assessment / Plan
Physical Exam
General: Not in acute distress
HEENT: Normocephalic. Atraumatic.
NECK: Supple.
RESPIRATORY: Lungs clear to auscultation bilaterally.
CVS: S1, S2 normal. RRR.
ABDOMEN: Soft, non-tender. No distension. BS+/normal.
EXTREMITIES: No peripheral cyanosis or edema.
INDUSTRIAL DESIGN INTERN: AAOx3. No focal deficits.
Assessment/Plan
88F GERD, HLD, NIDDM, PAD lower ext stents on ASA, Hx of breast bladder cancer, current smoker, p/w acid reflux/nausea/vomiting starting in morning, prompting ED eval. Prior to onset of symptoms patient had epigastric pain diarrhea for the past few
days. Diarrhea since resolved. Had a small bowel movement in the morning prior to onset nausea vomiting. ED eval would note SBO on imaging likely d/t adhesions. Labs noted hyponatremia likely due to vomiting and mild leukocytosis likely stress
reactive. Vital signs otherwise stable. Symptoms improved with antiemetics and ppi. Surgery evaluated and took patient to OR for laparoscopic surgical evaluation.
#SBO d/t pelvic adhesions surgery treated with Laparascopic Lysis of adhesions
#Hyponatremia likely d/t nausea vomiting
Surgery eval appreciated taken to OR for laparoscopic lysis of adhesions to release SBO
IVF support, hyponatremia improved
compazine prn nausea
pain control prn IV Tylenol Toradol
Diet advanced from CLD to Full Liquids
#GERD
IV PPI
#Hyperlipidemia
home statin on hold
#NIDDM
hold metformin while NPO
low dose sliding scale Q6
HbA1c is 6.9%
#PAD LE stents
cont home ASA
COPD
stable respiratory status on room air
cont home inhaler or substitute as per pharmacy
#Active Smoker
smoking cessation counseled
Pt declined Nicotine Supplementation
#Hypokalemia
#Hypophosphatemia
Monitor and replete as necessary
PT/OT appreciated Home Health
dvt ppx SCD Lovenox
gi ppx PPI
Full Code
Dr. Hart discussed with patient and patient's daughter also named Janice.
Anticipated Discharge: 24 - 48 hours
Subjective/Interval History
-
Date of Service: September 25, 2024
Patient was seen and examined. She denied any abdominal pain, nausea or vomiting.
Objective Data
-
Labs:
Laboratory Results
09/25/24
06:00
WBC Pending
Hgb Pending
Hct Pending
Plt Count Pending
Sodium Pending
Potassium Pending
Chloride Pending
Carbon Dioxide Pending
BUN Pending
Creatinine Pending
Glucose Pending
Calcium Pending
Vital Signs:
Vital Signs
Temp Pulse Resp BP Pulse Ox
98.2 F 75 16 119/53 94
09/25/24 03:25 09/25/24 03:25 09/25/24 03:25 09/25/24 03:25 09/25/24 03:25
I&O
09/24/24 09/25/24 09/26/24
06:59 06:59 06:59
Intake Total 2039 / 2039 2427 / 2427
Output Total 537 / 537 350 / 350
Balance 1503 / 1503 2076 / 2076
[2024-09-25 07:24] VITALS: BP 156/72
[2024-09-25] MEDS: SYMBICORT 160/4.5 MCG INHALER 2 PUFF INH ×2 (07:40→19:13)
[2024-09-25] MEDS: SPIRIVA RESPIMAT 2.5 MCG 2 PUFF INH (07:40)
[2024-09-25] MEDS: ASPIR LOW (ENTERIC COATED) 81 MG PO (08:11)
[2024-09-25] MEDS: NSS (PRESERVATIVE FREE) 10 ML IV (08:11)
[2024-09-25] MEDS: PROTONIX IV 40 MG IV (08:12)
[2024-09-25 09:27] LABS: Hematocrit 36.1 % (37.0-47.0); Mean Corp Hgb Conc. 33.2 g/dL (33.0-37.0); Mean Corpuscular Hgb 28.2 pg (27.0-31.0); Mean Corpuscular Volume 84.7 fL (81.0-99.0); Mean Platelet Volume 9.5 fL (7.4-10.4); Platelet Count 192 10^3/uL (130-400); Red Blood Cell Count 4.26 10^6/uL (4.20-5.40); Red Cell Dist. Width 14.6 % (11.5-14.5); White Blood Cell Count 4.4 10^3/uL (4.8-10.8)
--- NOTE | 2024-09-25 09:47 | W.PN.GS2 ---
Today's Communication / Plan
-
Full liquid diet
Assessment / Plan
-
88 yo female presenting with SBO secondary to adhesions now POD #3 lap FAITH. Doing well, expected postoperative course with return of bowel function but still mildly distended on exam.
Will advance to a full liquid diet
--Analgesics/Antiemetics as needed
--Follow labs on IVF
--Medical management as per primary team
--Encouraged OOB/Ambulation
--SCD's and lovenox for VTE ppx
Time Spent
Total Time Spent with Patient (in minutes): 10
Subjective Data
-
Date of Service: September 25, 2024
Interval Events:
No acute events overnight. Slept well. Pain Controlled. Denies Nausea/Vomiting, +bowel function. Tolerating diet.
Objective Data
-
Intake and Output
09/24/24 09/25/24 09/26/24
06:59 06:59 06:59
Intake Total 2040 / 2040 2427 / 2427
Output Total 537 / 537 350 / 350
Balance 1503 / 1503 2076 / 2077
Intake:
Oral fluids 240 / 240 1277 / 1277
IV fluids (Total) 1800 / 1800 900 / 900
IV piggybacks 250 / 250
Output:
Urine, [place] 25 / 25
Urine, Voided 512 / 512 350 / 350
Other:
Number of approximated MODERATE 2 2
amounts of urine
Vital Signs
Temp Pulse Resp BP Pulse Ox
97.6 F 92 16 156/72 96
09/25/24 07:24 09/25/24 07:43 09/25/24 07:43 09/25/24 07:24 09/25/24 07:43
Lab Results
09/25/24 08:45
Calcium 8.1 mg/dl (8.4-10.2) L 09/24/24 04:44
Phosphorus 2.1 mg/dl (2.5-4.5) L 09/24/24 04:44
Magnesium 1.9 mg/dl (1.6-2.3) 09/24/24 04:44
Total Bilirubin 0.6 mg/dl (0.2-1.3) 09/22/24 12:50
AST 27 U/L (14-36) 09/22/24 12:50
ALT 16 U/L (0-35) 09/22/24 12:50
Alkaline Phosphatase 106 U/L (38-126) 09/22/24 12:50
Total Protein 6.7 g/dl (6.3-8.2) 09/22/24 12:50
Albumin 4.0 g/dl (3.5-5.0) 09/22/24 12:50
Physical Exam
-
GENERAL/NEURO: Awake, Alert, no distress
CHEST: Unlabored breathing on RA
ABDOMEN: Soft, Non-Tender, Non-Distended, incisions clean dry and intact. Glue in place, stable ecchymoses.
[2024-09-25 09:59] LABS: Blood Urea Nitrogen 11 mg/dl (7-17); Calcium 8.2 mg/dl (8.4-10.2); Carbon Dioxide 23 mmol/L (22-30); Chloride 102 mmol/L (98-107); Estimated Creatinine Clearance 53 ml/min; Glucose 106 mg/dl (70-99); Magnesium 1.7 mg/dl (1.6-2.3); Phosphorus 2.4 mg/dl (2.5-4.5); Potassium 3.7 mmol/L (3.5-5.1); Sodium 132 mmol/L (135-145); eGFR > 60.00
[2024-09-25] MEDS: MAGNESIUM SULFATE 100 IV (10:28)
[2024-09-25 11:16] VITALS: BP 159/77
[2024-09-25] MEDS: POTASSIUM PHOSPHATE 259.0909 MEQ IV (11:49)
--- NOTE | 2024-09-25 15:03 | CM ---
Chart reviewed. Met with pt
PT recs HH - pt reports has used [facility] in past
Referral sent to [facility] in [facility] [place]
Plan - anticipate home with [facility] when medically stable
[2024-09-25 15:30] VITALS: BP 126/52
[2024-09-25] MEDS: LOVENOX 30 MG SC (17:59)
[2024-09-25 22:53] VITALS: BP 137/66
[2024-09-26] MEDS: NSS 1000 IV (05:14)
[2024-09-26] MEDS: SPIRIVA RESPIMAT 2.5 MCG 2 PUFF INH (07:08)
[2024-09-26] MEDS: SYMBICORT 160/4.5 MCG INHALER 2 PUFF INH ×2 (07:08→20:21)
--- NOTE | 2024-09-26 07:21 | W.PN.GS2 ---
Today's Communication / Plan
-
`
Assessment / Plan
-
Assessment: 88 yo female presenting with SBO secondary to adhesions now POD #4 lap FAITH.
AFVSS
Doing well
Returning bowel function but still mildly distended on exam.
Plan:
--Dulcolax suppository
--advance to regular diet for lunch
--Encouraged OOB/Ambulation
--SCD's and lovenox for VTE ppx
Subjective Data
-
Date of Service: September 26, 2024
pt seen and examined
minimal post op pain
passing flatus regularly, feels some 'hunger pains'
requesting to start food
Objective Data
-
Intake and Output
09/25/24 09/26/24 09/27/24
06:59 06:59 06:59
Intake Total 2427 / 2427 1909
Output Total 350 / 350
Balance 2076 / 2076
Intake:
Oral fluids 1277 / 1277 360 / 360
IV fluids (Total) 900 / 900 1200 / 1200
IV piggybacks 250 / 250 350 / 350
Output:
Urine, Voided 350 / 350
Other:
Number of approximated MODERATE 2 2
amounts of urine
Vital Signs
Temp Pulse Resp BP Pulse Ox
97.9 F 68 16 137/66 97
09/25/24 22:53 09/26/24 07:12 09/26/24 07:12 09/25/24 22:53 09/26/24 07:12
Calcium 8.2 mg/dl (8.4-10.2) L 09/25/24 08:45
Phosphorus 2.4 mg/dl (2.5-4.5) L 09/25/24 08:45
Magnesium 1.7 mg/dl (1.6-2.3) 09/25/24 08:45
Total Bilirubin 0.6 mg/dl (0.2-1.3) 09/22/24 12:50
AST 27 U/L (14-36) 09/22/24 12:50
ALT 16 U/L (0-35) 09/22/24 12:50
Alkaline Phosphatase 106 U/L (38-126) 09/22/24 12:50
Total Protein 6.7 g/dl (6.3-8.2) 09/22/24 12:50
Albumin 4.0 g/dl (3.5-5.0) 09/22/24 12:50
Physical Exam
-
NAD AAOx3
ABD: softly protuberant with some tympany, nontender
incisions with glue dressings
[2024-09-26 07:39] LABS: Hematocrit 34.1 % (37.0-47.0); Hemoglobin 11.6 g/dL (12.0-16.0); Mean Corpuscular Volume 82.2 fL (81.0-99.0); Mean Platelet Volume 9.5 fL (7.4-10.4); Platelet Count 208 10^3/uL (130-400); Red Blood Cell Count 4.15 10^6/uL (4.20-5.40); Red Cell Dist. Width 14.3 % (11.5-14.5); White Blood Cell Count 5.3 10^3/uL (4.8-10.8)
[2024-09-26] MEDS: PROTONIX IV 40 MG IV (07:54)
[2024-09-26] MEDS: NSS (PRESERVATIVE FREE) 10 ML IV (07:54)
[2024-09-26] MEDS: ASPIR LOW (ENTERIC COATED) 81 MG PO (07:55)
[2024-09-26 08:03] LABS: Albumin 2.9 g/dl (3.5-5.0); Blood Urea Nitrogen 7 mg/dl (7-17); Calcium 8.2 mg/dl (8.4-10.2); Carbon Dioxide 24 mmol/L (22-30); Chloride 103 mmol/L (98-107); Estimated Creatinine Clearance 53 ml/min; Glucose 116 mg/dl (70-99); Magnesium 1.8 mg/dl (1.6-2.3); Phosphorus 2.9 mg/dl (2.5-4.5); Sodium 133 mmol/L (135-145); eGFR > 60.00
[2024-09-26 08:15] VITALS: BP 153/70
[2024-09-26] MEDS: DULCOLAX 10 MG RECTAL (08:27)
--- NOTE | 2024-09-26 10:38 | CM ---
Addendum entered by Susan Wu RN 09/26/24 11:51:
IMM signed.
Original Note:
Reviewed the chart notes and spoke with the patient and her [id number] at the bedside. The patient anticipates being discharged to home with possible VN needs. Patient will think about VN and speak with them when the reach out to schedule
appointment. Patient may decline at discharge. CM continues to be available to patient/family and is monitoring medical plan for needs at discharge.
Plan: Right now home with [facility] from [facility]
--- NOTE | 2024-09-26 13:35 | W.PN.HOSP.TC ---
Today's Communication/Plan
-
Diet now advanced to Regular
Per surgeon Dr. Teague, given patient is still a bit distended, would like to watch patient with Regular Diet today, and if patient doing well, then discharge tomorrow
Assessment / Plan
Assessment / Plan
Physical Exam
General: Not in acute distress
HEENT: Normocephalic. Atraumatic.
NECK: Supple.
RESPIRATORY: Lungs clear to auscultation bilaterally.
CVS: S1, S2 normal. RRR.
ABDOMEN: Soft, non-tender. No distension. BS+/normal.
EXTREMITIES: No peripheral cyanosis or edema.
OFFICE SERVICES COORDINATOR: AAOx3. No focal deficits.
Assessment/Plan
88F GERD, HLD, NIDDM, PAD lower ext stents on ASA, Hx of breast bladder cancer, current smoker, p/w acid reflux/nausea/vomiting starting in morning, prompting ED eval. Prior to onset of symptoms patient had epigastric pain diarrhea for the past few
days. Diarrhea since resolved. Had a small bowel movement in the morning prior to onset nausea vomiting. ED eval would note SBO on imaging likely d/t adhesions. Labs noted hyponatremia likely due to vomiting and mild leukocytosis likely stress
reactive. Vital signs otherwise stable. Symptoms improved with antiemetics and ppi. Surgery evaluated and took patient to OR for laparoscopic surgical evaluation.
#SBO d/t pelvic adhesions surgery treated with Laparoscopic Lysis of adhesions
#Hyponatremia likely d/t nausea vomiting
Surgery evaluation appreciated taken to OR for laparoscopic lysis of adhesions to release SBO
IVF support, hyponatremia improved
Compazine as needed for nausea
Pain control prn IV Tylenol Toradol
Diet now advanced to Regular
Per surgeon Dr. Teague, given patient is still a bit distended, would like to watch patient with Regular Diet today, and if patient doing well, then discharge tomorrow
#GERD
-Continue home PPI
#Hyperlipidemia
-Continue home statin
#NIDDM
hold metformin while NPO
low dose sliding scale Q6
HbA1c is 6.9%
#PAD LE stents
cont home ASA
COPD
stable respiratory status on room air
cont home inhaler or substitute as per pharmacy
#Active Smoker
smoking cessation counseled
Pt declined Nicotine Supplementation
#Hypokalemia
#Hypophosphatemia
Monitor and replete as necessary
PT/OT appreciated Home Health
dvt ppx SCD Lovenox
gi ppx PPI
Full Code
Dr. Hart discussed with patient and patient's daughter also named Janice.
Anticipated Discharge: Within 24 hours
Subjective/Interval History
-
Date of Service: September 26, 2024
Patient was seen and examined. She reported feeling okay, had some heartburn earlier, otherwise she said she is passing gas and stool.
Objective Data
-
Labs:
Laboratory Results
09/26/24
07:12
WBC 5.3
Hgb 11.6 L
Hct 34.1 L
Plt Count 208
Sodium 133 L
Potassium 4.0
Chloride 103
Carbon Dioxide 24
BUN 7
Creatinine 0.6
Glucose 116 H
Calcium 8.2 L
Vital Signs:
Vital Signs
Temp Pulse Resp BP Pulse Ox
97.8 F 68 18 153/70 95
09/26/24 08:15 09/26/24 08:15 09/26/24 08:15 09/26/24 08:15 09/26/24 08:15
I&O
09/25/24 09/26/24 09/27/24
06:59 06:59 06:59
Intake Total 2427 / 2427 1909
Output Total 350 / 350
Balance 2076
[2024-09-26] MEDS: NSS IV (15:09)
[2024-09-26 15:21] VITALS: BP 157/61
[2024-09-26] MEDS: LOVENOX 30 MG SC (17:50)
[2024-09-26 23:42] VITALS: BP 159/73
[2024-09-27] MEDS: NSS IV (01:42)
[2024-09-27 06:55] LABS: Hematocrit 33.4 % (37.0-47.0); Hemoglobin 11.4 g/dL (12.0-16.0); Mean Corp Hgb Conc. 34.1 g/dL (33.0-37.0); Mean Corpuscular Hgb 28.4 pg (27.0-31.0); Mean Corpuscular Volume 83.3 fL (81.0-99.0); Mean Platelet Volume 9.4 fL (7.4-10.4); Platelet Count 196 10^3/uL (130-400); Red Blood Cell Count 4.01 10^6/uL (4.20-5.40); Red Cell Dist. Width 14.1 % (11.5-14.5); White Blood Cell Count 4.4 10^3/uL (4.8-10.8)
[2024-09-27] MEDS: SYMBICORT 160/4.5 MCG INHALER 2 PUFF INH (07:14)
[2024-09-27] MEDS: SPIRIVA RESPIMAT 2.5 MCG 2 PUFF INH (07:14)
[2024-09-27 07:24] LABS: Blood Urea Nitrogen 8 mg/dl (7-17); Calcium 8.4 mg/dl (8.4-10.2); Carbon Dioxide 27 mmol/L (22-30); Chloride 98 mmol/L (98-107); Estimated Creatinine Clearance 53 ml/min; Glucose 111 mg/dl (70-99); Magnesium 1.6 mg/dl (1.6-2.3); Phosphorus 2.9 mg/dl (2.5-4.5); Potassium 4.1 mmol/L (3.5-5.1); Sodium 128 mmol/L (135-145); eGFR > 60.00
[2024-09-27 07:26] VITALS: BP 163/76
--- NOTE | 2024-09-27 07:28 | W.PN.GS2 ---
Today's Communication / Plan
-
`
Assessment / Plan
-
Assessment: 88 yo female presenting with SBO secondary to adhesions now POD #5 lap FAITH.
AFVSS
Doing well
full return of GI function and toni diet advacement
Plan: stable for d/c home
outpt post op follow up with myself in 2-3 weeks
Subjective Data
-
Date of Service: September 27, 2024
pt seen and examined
toni regular diet
+fl and loose BMs
no nausea
ready for dc home
Objective Data
-
Intake and Output
09/26/24 09/27/24 09/28/24
06:59 06:59 06:59
Intake Total 1909 / 1909 900 / 900
Balance 191 / 1909 900 / 900
Intake:
Oral fluids 360 / 360 900 / 900
IV fluids (Total) 1200 / 1200
IV piggybacks 350 / 350
Other:
Number of approximated MODERATE 2 2
amounts of urine
Vital Signs
Temp Pulse Resp BP Pulse Ox
98.8 F 76 16 159/73 96
09/26/24 23:42 09/27/24 07:17 09/27/24 07:17 09/26/24 23:42 09/27/24 07:17
Lab Results
09/27/24 06:02
09/27/24 06:02
Calcium 8.4 mg/dl (8.4-10.2) 09/27/24 06:02
Phosphorus 2.9 mg/dl (2.5-4.5) 09/27/24 06:02
Magnesium 1.6 mg/dl (1.6-2.3) 09/27/24 06:02
Total Bilirubin 0.6 mg/dl (0.2-1.3) 09/22/24 12:50
AST 27 U/L (14-36) 09/22/24 12:50
ALT 16 U/L (0-35) 09/22/24 12:50
Alkaline Phosphatase 106 U/L (38-126) 09/22/24 12:50
Total Protein 6.7 g/dl (6.3-8.2) 09/22/24 12:50
Albumin 2.9 g/dl (3.5-5.0) L 09/26/24 07:12
Physical Exam
-
NAD AAOx3
ABD: soft, ND, nontender
incisions with glue dressings
--- NOTE | 2024-09-27 08:22 | W.PN.HOSP.TC ---
Today's Communication/Plan
-
Discharge today
Assessment / Plan
Assessment / Plan
Physical Exam
General: Not in acute distress
HEENT: Normocephalic. Atraumatic.
NECK: Supple.
RESPIRATORY: Lungs clear to auscultation bilaterally.
CVS: S1, S2 normal. RRR.
ABDOMEN: Soft, non-tender. No distension. BS+/normal.
EXTREMITIES: No peripheral cyanosis or edema.
CAP JEWEL PLATE ASSEMBLER: AAOx3. No focal deficits.
Assessment/Plan
88F GERD, HLD, NIDDM, PAD lower ext stents on ASA, Hx of breast bladder cancer, current smoker, p/w acid reflux/nausea/vomiting starting in morning, prompting ED eval. Prior to onset of symptoms patient had epigastric pain diarrhea for the past few
days. Diarrhea since resolved. Had a small bowel movement in the morning prior to onset nausea vomiting. ED eval would note SBO on imaging likely d/t adhesions. Labs noted hyponatremia likely due to vomiting and mild leukocytosis likely stress
reactive. Vital signs otherwise stable. Symptoms improved with antiemetics and ppi. Surgery evaluated and took patient to OR for laparoscopic surgical evaluation.
#SBO d/t pelvic adhesions surgery treated with Laparoscopic Lysis of adhesions
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
Surgery evaluation appreciated taken to OR for laparoscopic lysis of adhesions to release SBO
Compazine as needed for nausea
Pain control prn IV Tylenol Toradol
Diet now advanced to Regular
Outpatient post-op follow-up with Dr. Teague in 2-3 weeks
#Hyponatremia
-Improved overall although now 128
-Patient has been eating and drinking, received IV fluids. Currently appears euvolemic. Will need to follow PO fluid restriction 48 ounces daily on discharge, with repeat labs with PCP -- I discussed this with patient who mentioned that she will
follow-up for repeat labs within 2 days.
#GERD
-Continue home PPI
#Hyperlipidemia
-Continue home statin
#NIDDM
low dose sliding scale Q6
HbA1c is 6.9%
Follow-up with PCP
#PAD LE stents
cont home ASA
COPD
stable respiratory status on room air
cont home inhaler or substitute as per pharmacy
#Active Smoker
smoking cessation counseled
Pt declined Nicotine Supplementation
#Hypokalemia
#Hypophosphatemia
Monitor and replete as necessary
PT/OT appreciated Home Health
dvt ppx SCD Lovenox
gi ppx PPI
Full Code
Dr. Hart discussed with patient and patient's daughter also named Janice.
More than 30 minutes spent in discharge including
Final examination of the patient
Summarizing hospital stay
Instructions for continuing care to all relevant caregivers
Preparation of discharge records, prescriptions, and referral forms
Total time spent (in minutes): 38
Anticipated Discharge: Today
Subjective/Interval History
-
Date of Service: September 27, 2024
Patient was seen and examined. She denied any dizziness, weakness, abdominal pain, numbness, tingling, chest pain, SOB or any other complaints. She is tolerating her diet well.
Objective Data
-
Labs:
Laboratory Results
09/27/24
06:02
WBC 4.4 L
Hgb 11.4 L
Hct 33.4 L
Plt Count 196
Sodium 128 L
Potassium 4.1
Chloride 98
Carbon Dioxide 27
BUN 8
Creatinine 0.6
Glucose 111 H
Calcium 8.4
Vital Signs:
Vital Signs
Temp Pulse Resp BP Pulse Ox
97.3 F 78 14 163/76 96
09/27/24 07:26 09/27/24 07:26 09/27/24 07:26 09/27/24 07:26 09/27/24 07:26
I&O
09/26/24 09/27/24 09/28/24
06:59 06:59 06:59
Intake Total 1909 900 / 900
Balance 1909 900 / 900
[2024-09-27] MEDS: LIPITOR 10 MG PO (08:54)
[2024-09-27] MEDS: ASPIR LOW (ENTERIC COATED) 81 MG PO (08:54)
[2024-09-27] MEDS: PROTONIX 40 MG PO (08:54)
--- NOTE | 2024-09-27 10:09 | CM ---
Reviewed the chart notes and spoke with the patient at the bedside. Patient for potential discharge today to home with [facility]. Patient's family to provide transportation. CM continues to be available to patient/family and is monitoring medical
plan for needs at discharge.
Plan: Discharge to home with [facility].
--- NOTE | 2024-09-27 14:09 | W.DCSUMMARY ---
Discharge Summary
Discharge Data
Date of Admission: 09/22/24
Date of Discharge: 09/27/24
Total time spent discharging patient (in min): 38
-
Pending Results: No
Hospital Course
88 y/o female with past medical history of GERD, HLD, NIDDM, PAD lower extremity stents on Aspirin, history of breast bladder cancer presented with acid reflux/nausea/vomiting, as well as epigastric pain and diarrhea for the few days prior to
arrival. Imaging was performed and it showed probable significant small bowel obstruction, and on the same day of admission, general surgery performed lysis of adhesions. Patient's hyponatremia improved with intravenous fluids. Patient's bowel
function gradually returned and she was able to tolerate a regular diet. She was stable for discharge with close outpatient follow-up, including close outpatient follow-up for hyponatremia follow-up.
Discharge Plan
-
Patient Disposition: Home with Home Care
Discharge Diagnosis/Procedures: #Small bowel obstruction with laparoscopic lysis of adhesions
#Hyponatremia
#Gastroesophageal Reflux Disease
#Hyperlipidemia
#Diabetes Mellitus
#Peripheral Artery Disease with LE stents
#Chronic Obstructive Pulmonary Disease
#Active Smoker
#Hypokalemia
#Hypophosphatemia
Condition: Good
Diet: As tolerated, Regular, Low Fat, Low Cholesterol, Diabetic, Carb Controlled, Restrict fluids to 48 oz and Supplements
Additional Diets: smaller meals if abdominal bloating/distention.
Activity: No strenuous activity
Additional Activity: Do not lift over 15lbs for the next 2-3 weeks
Driving Restrictions: As prior to admission
Bathing Restrictions: OK to Shower
Blood Work: Check BMP, Magnesium, and CBC with your primary care provider's office in 1 to 2 days.
Wound Care: The glue over your incisions will flake off in the next 2-3 weeks, avoid scrubbing or picking it off.
Activity Restrictions/Additional Instructions:
�
BECAUSE OF YOUR LOW SODIUM YOU NEED TO CONTACT YOUR PRIMARY CARE PROVIDER'S OFFICE AND GET REPEAT BMP LABWORK IN 1 TO 2 DAYS TO MAKE SURE YOUR SODIUM IS OKAY. YOU WILL ALSO NEED TO FOLLOW ORAL FLUID RESTRICTION 48 OUNCES DAILY.
Jad Teague MD [facility] General Surgery
[facility]
[address], [address]
[place] [address]
[phone]
Initial Post-Operative Instructions for Laparoscopic/Robotic Surgery
The incision sites are sealed with a surgical glue dressing.� It is safe to shower at any time after surgery when the glue is dry.� Let shower water run over the incisions and then pat dry.
Glue dressing typically peels off in 2-3 weeks.
Abdominal/incisional pain and discomfort, shoulder/scapular pain, bloating, and mild nausea, as well as bruising/stiffness and swelling at the incision sites are common after surgery.� If felt to be excessive, notify us.
Please start postoperative pain management using over the counter medications such as Tylenol and Ibuprofen, per instructions on the bottle, as long as there are no medical reasons why you
Resume a regular diet initially with smaller meal sizes for 24-36hrs after surgery if not experiencing postoperative nausea or significant bloating/distention.
Constipation is common following surgery and postoperative narcotic use.� May use a stool softener such as Colace (100 mg 2x day) to prevent constipation
If no BM 24hrs after surgery, recommend starting daily Miralax
If no BM in 24-48hrs after starting Miralax --> recommend then using a dose of magnesium citrate or milk of magnesia with a Senokot tablet to help alleviate post operative constipation as long as there is no nausea/vomiting and passing gas.
Resume all preoperative medications as prescribed, unless directed otherwise.
Do not drive or drink alcohol for 24 hrs after having anesthesia or while taking narcotic pain medications.
Resume regular daily light activities, such as walking, standing and going up/down stairs as tolerated within 24hrs of surgery.� Please refrain from lifting over 15-20 lbs or strenuous exercise until postoperative follow up visit &/or approximately
3-4 weeks.�
Call the office with a fever above 101� F, nausea with vomiting, severe abdominal pain, spreading redness and drainage from incision sites or with any concerns/questions.
If not arranged prior to surgery, please call the office to schedule or confirm your 10-14 day postoperative surgical follow-up office visit with Dr. Teague.
Referrals:
Osmin Tineo MD [Family Provider] - in one to two days (Needs BMP, CBC, Magnesium checked by 09/28/24 or 09/29/24. Sodium needs to be watched given hyponatremia.)
Jad Teague MD [Active] - in two to four weeks
Additional Discharge Medication Instructions: Metformin held until outpatient discussion with PCP.
Prescriptions:
Continued
atorvastatin 10 mg tablet
10 mg PO DAILY
aspirin 81 mg Tablet,Delayed Release (Dr/Ec)
81 mg PO DAILY
alprazolam 0.25 mg Tablet
0.25 mg PO DAILYPRN PRN (Reason: anxiety)
Rx Instructions:
09/22/24: filled #270 tablets/90 day supply on 11/25/21 - [facility]
pantoprazole 40 mg Tablet,Delayed Release (Dr/Ec)
40 mg PO DAILY
Breztri Aerosphere 160-9-4.8 mcg/actuation Hfa Aerosol Inhaler
2 inh INHALATION BID
Changed
acetaminophen 500 mg Tablet
500 mg PO DAILY PRN (Reason: pain) Qty: 0 0RF
Held
metformin 500 mg Tablet
200 mg PO QPM
Hold Instructions: Resume on 10/04/24. Before resuming this medication, check with your primary care provider to make sure it is okay to resume this medication.
Discharge Orders:
Discharge Patient (As Directed); Ordered 09/27/24
Ordered By: Les Hinojosa
Discharge Date and Time
Discharge Date/Time: 09/27/24 15:04
Print Language: TAIWANESE
[2024-09-27 15:00] VITALS: BP 149/68
== END 2024-09-27 15:04 | disposition home health service (06) | DRG 336 ==
LOC: 2 SOUTH 16:47
PROVIDERS: Registered Nurse; Student in an Organized Health Care Education/Training Program; ADMITTING PHYSICIAN Internal Medicine; ATTENDING PHYSICIAN Hospitalist; CONSULT PHYSICIAN Surgery; EMERGENCY PHYSICIAN Emergency Medicine; FAMILY PHYSICIAN Family Medicine
PROC: 0DNB4ZZ Release Ileum, Percutaneous Endoscopic Approach (ICD-10-PCS; 2024-09-22)
DX: K56.52 Intestinal adhesions [bands] with complete obstruction (principal); E87.1 Hypo-osmolality and hyponatremia; R64 Cachexia; Z68.1 Body mass index [BMI] 19.9 or less, adult; K21.9 Gastro-esophageal reflux disease without esophagitis; E11.51 Type 2 diabetes mellitus with diabetic peripheral angiopathy without gangrene; E78.00 Pure hypercholesterolemia, unspecified; F17.210 Nicotine dependence, cigarettes, uncomplicated; D72.829 Elevated white blood cell count, unspecified; J44.9 Chronic obstructive pulmonary disease, unspecified; E87.6 Hypokalemia; E83.39 Other disorders of phosphorus metabolism; Z85.51 Personal history of malignant neoplasm of bladder; Z85.3 Personal history of malignant neoplasm of breast; Z79.82 Long term (current) use of aspirin; Z79.51 Long term (current) use of inhaled steroids; Z79.02 Long term (current) use of antithrombotics/antiplatelets; Z79.84 Long term (current) use of oral hypoglycemic drugs; Z79.899 Other long term (current) drug therapy; Z88.5 Allergy status to narcotic agent; Z90.10 Acquired absence of unspecified breast and nipple; Z90.49 Acquired absence of other specified parts of digestive tract; Z95.820 Peripheral vascular angioplasty status with implants and grafts
CPT/HCPCS: 74022; 74177; 80048; 80053; 82040; 82962; 83036; 83690; 83735; 84100; 85014; 85018; 85025; 85027; 93005; 94640; 96361; 96374; 96375; 97116; 97162; 97166; 99285; C1776; J1335; Q9967